=== PATIENT | female | born 2000 | race Caucasian/White ===

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

== ENCOUNTER → 2018-06-11 | Outpatient (CLI) | payer MEDICAID | END | disposition home or self-care (01) | LOC: US 16:00 | DX: Z34.82 Encounter for supervision of other normal pregnancy, second trimester (principal); Z3A.24 24 weeks gestation of pregnancy ==

== ENCOUNTER 2018-07-15 20:24 | Emergency (ER) | payer OTHER ==
[~2018-07-15] VITALS: Ht 170.1 cm; Wt 62.6 kg
== END 2018-07-15 20:53 | disposition left against medical advice (07) ==
LOC: ED 20:24
DX: O26.892 Other specified pregnancy related conditions, second trimester (principal); R51 Headache; Z3A.28 28 weeks gestation of pregnancy

== ENCOUNTER → 2018-08-25 | Outpatient (CLI) | payer OTHER | END | disposition home or self-care (01) | LOC: US 08-06 15:00 | DX: Z34.03 Encounter for supervision of normal first pregnancy, third trimester (principal); Z3A.35 35 weeks gestation of pregnancy ==

== ENCOUNTER → 2018-09-11 | Outpatient (CLI) | payer OTHER | END | disposition home or self-care (01) | LOC: US 14:30 | DX: Z34.91 Encounter for supervision of normal pregnancy, unspecified, first trimester (principal); Z3A.01 Less than 8 weeks gestation of pregnancy ==

== ENCOUNTER → 2018-09-29 | Outpatient (CLI) | payer OTHER | END | disposition home or self-care (01) | LOC: US 09-26 09:30 | DX: O36.5930 Maternal care for other known or suspected poor fetal growth, third trimester, not applicable or unspecified (principal); O09.33 Supervision of pregnancy with insufficient antenatal care, third trimester; Z3A.40 40 weeks gestation of pregnancy ==